=== PATIENT | male | born 1980 | race Caucasian/White ===

== ENCOUNTER 2020-02-11 15:36 | Emergency (ER) | payer MEDICAID, OTHER ==
[~2020-02-11] VITALS: Ht 175.3 cm; Wt 90.0 kg
[2020-02-11] MEDS ORDERED: CefTRIAXone 250MG inj IM ONE (16:05)
[2020-02-11] MEDS ORDERED: azithromycin 250mg tablet PO ONE (16:05)
[2020-02-11] MEDS ORDERED: DOXY100C43 PO (16:08)
[2020-02-11] MEDS ORDERED: CefTRIAXone 250MG IM Kit w/LIDOcaine IM ONE (16:20)
[2020-02-11 16:47] VITALS: BP 147/92
[2020-02-11 19:05] LABS: CLARITY,URINE CLOUDY (Clear); COLOR,URINE YELLOW (Yellow); GLUCOSE, URINE NEGATIVE (Neg); KETONES,URINE NEGATIVE (Neg); LEUKOCYTE ESTERASE ,URINE NEGATIVE (Neg); NITRITES, URINE NEGATIVE (Neg); OCCULT BLOOD,URINE TRACE-INTACT (Neg); PH,URINE 6.5 (4.8-8.0); PROTEIN,URINE NEGATIVE (Neg); UROBILINOGEN,URINE 0.2 E.U/dL (0.2-1.0)
[2020-02-11 19:06] LABS: UA COLLECTION TYPE VOIDED
[2020-02-11 19:11] LABS: AMORPHOUS URATES 3+; BACTERIA,URINE NONE SEEN /HPF (Neg); MUCUS STRANDS NONE SEEN /LPF (Neg); RBC,URINE 0-2 /HPF (0-2); SQUAMOUS EPITHELIAL CELL,UR FEW /LPF (FEW); WBC,URINE 0-4 /HPF (0-4)
== END 2020-02-11 16:50 | disposition home or self-care (01) ==
LOC: ER 15:37
DX: N45.1 Epididymitis (principal); F17.200 Nicotine dependence, unspecified, uncomplicated; Z72.89 Other problems related to lifestyle; Z79.899 Other long term (current) drug therapy
CPT/HCPCS: 36415; 81001; 87491; 87591; 96372; 99283; J0696

== ENCOUNTER 2020-09-04 10:23 | Emergency (ER) | payer MEDICAID ==
[~2020-09-04] VITALS: Ht 175.3 cm; Wt 89.0 kg
--- NOTE | 2020-09-04 11:58 | NUR ---
ULTRASOUND AT BEDSIDE
[2020-09-04] MEDS ORDERED: LEVO500T89 PO (12:34)
[2020-09-04 13:06] LABS: CLARITY,URINE CLEAR (Clear); COLOR,URINE YELLOW (Yellow); GLUCOSE, URINE NEGATIVE (Neg); KETONES,URINE NEGATIVE (Neg); LEUKOCYTE ESTERASE ,URINE TRACE (Neg); NITRITES, URINE NEGATIVE (Neg); OCCULT BLOOD,URINE SMALL (Neg); PROTEIN,URINE NEGATIVE (Neg)
[2020-09-04 13:10] LABS: UA COLLECTION TYPE URINAL
[2020-09-04 13:12] LABS: RBC,URINE 0-2 /HPF (0-2); WBC,URINE 20-30 /HPF (0-4)
[2020-09-04 13:13] LABS: BACTERIA,URINE FEW /HPF (Neg); MUCUS STRANDS FEW /LPF (Neg); SQUAMOUS EPITHELIAL CELL,UR FEW /LPF (FEW)
[2020-09-04 14:05] VITALS: BP 135/97
== END 2020-09-04 14:10 | disposition home or self-care (01) ==
LOC: ER 10:24
DX: N45.1 Epididymitis (principal); F17.200 Nicotine dependence, unspecified, uncomplicated; Z79.2 Long term (current) use of antibiotics
CPT/HCPCS: 76775; 76870; 81001; 87088; 93976; 99285

== ENCOUNTER 2022-07-22 07:57 | Emergency (ER) | payer MEDICAID ==
[~2022-07-22] VITALS: Ht 175.3 cm; Wt 88.0 kg
[2022-07-22 08:18] VITALS: BP 131/92
[2022-07-22] MEDS ORDERED: acetaminophen 325mg tablet PO ONE (11:35)
[2022-07-22] MEDS ORDERED: ibuprofen tablet 400 MG TABLET PO ONE (11:35)
[2022-07-22] MEDS ORDERED: ONDA4TAB12 PO (11:56)
[2022-07-22] MEDS ORDERED: NIRM1TAB PO (11:56)
== END 2022-07-22 12:03 | disposition home or self-care (01) ==
LOC: ER 07:57
DX: U07.1 COVID-19 (principal)
CPT/HCPCS: 87635; 99283; C9803

== ENCOUNTER 2022-08-19 08:24 | Emergency (ER) | payer MEDICAID ==
[~2022-08-19] VITALS: Ht 175.3 cm; Wt 90.0 kg
[~2022-08-19 08:24] MED LIST: NIRM1TAB PO; ONDA4TAB12 PO
[2022-08-19 08:28] VITALS: BP 123/94
== END 2022-08-19 10:41 | disposition home or self-care (01) ==
LOC: ER 08:25
DX: R51.9 Headache, unspecified (principal); R11.0 Nausea; Z79.899 Other long term (current) drug therapy
CPT/HCPCS: 99281